=== PATIENT | female | born 1995 ===

== ENCOUNTER → 2023-09-15 12:54 | Outpatient (REF) | payer BC, SELFPAY ==
[2023-09-15 16:52] LABS: 60 Min PTT 1:10 Mix 42.7 SEC; 60 Min PTT 1:2 Mix 38.1; 60 Minute PTT Control 42.8 SEC; Control Immediate PTT 41.8 SEC; Imm Run PTT 1:2 Mix 31.9
[2023-09-18 09:29] LABS: Cardiolipin IgA Antibody <10 APL (<=11); Cardiolipin IgM Antibody <10 MPL (<=12); Cardiolipin Igg Antibody <10 GPL (<=14)
[2023-09-18 16:06] LABS: Factor 2 Activity(Prothrombin) 109 % (86-150)
[2023-09-18 21:50] LABS: Anti-Xa Qualitative Interp Not Performed (Not Present); Anticoagulant Med Neutralizati Not Performed (Not Performed); Hexagonal Phospholipid Confirm Not Performed s (<=7.9); Neutralized PTT-LA Ratio Not Performed (<=1.20); Neutralized dRVTT Screen Ratio Not Performed (<=1.20); PTT-LA Ratio 1.18 (<=1.20); Prothrombin Time 15.9 s (12.0-15.5); Thrombin Time Not Performed s (<=19.5); dRVTT 1.1 Mix Ratio Not Performed (<=1.20); dRVTT Confirmation Ratio Not Performed (<=1.20); dRVTT Screen Ratio 1.11 (<=1.20)
== END ==
LOC: REG 12:54
PROVIDERS: ATTENDING PHYSICIAN Internal Medicine Hematology & Oncology
DX: R79.1 Abnormal coagulation profile (principal)
CPT/HCPCS: 36415; 85210; 85230; 85240; 85245; 85246; 85247; 85250; 85610; 85613; 85730; 85732; 86147